=== PATIENT | male | born 1975 | race Caucasian/White ===

== ENCOUNTER 2018-06-30 21:28 | Emergency (ER) | payer SELFPAY ==
--- NOTE | 2018-06-30 21:57 | EDPHY ---
H & P Stated Complaint: Marceline Vomit X 3 Months Time Seen by Provider: 06/30/18 22:03 HPI/ROS: HPI CHIEF COMPLAINT: Multiple complaints. Nausea, vomiting. HISTORY OF PRESENT ILLNESS: 42-year-old male presents emergency room intoxicated with alcohol. He arrives in police custody is here for medical clearance for usp. The patient has multiple complaints including nausea vomiting and hematuria. Patient reports that he was diagnosed with "a gastrointestinal cancer" years ago not currently undergoing any current treatment. Does not take any daily medications. However he reports to me that every morning he wakes up in vomits. He typically vomits what he describes a great discoloration sometimes bile yellow, sometimes bloody. Also reports to me that he has brown stool sometimes sees blood in it. Additionally reports to me that at times he urinates blood. Denies any chest pain or shortness of breath. His main complaint nausea vomiting every morning. Discoloration of his urine Discoloration of his vomit Discoloration of his stool. Denies black tarry stool. Denies recent fever Denies recent illness Past Medical History: "A gastrointestinal cancer" Past Surgical History: No recent surgery Social History: Alcohol this evening. Denies drugs or tobacco. Family History: Noncontributory ROS REVIEW OF SYSTEMS: 10 Systems were reviewed and negative with the exception of the elements mentioned in the history of present illness. Exam Constitutional smells of alcohol, intoxicated, triage nursing summary reviewed , vital signs reviewed, awake/alert. Vital signs stable. Eyes normal conjunctivae and sclera, EOMI, PERRLA. HENT normal inspection, atraumatic, moist mucus membranes, no epistaxis, neck supple/ no meningismus, no raccoon eyes. Respiratory clear to auscultation bilaterally, normal breath sounds, no respiratory distress, no wheezing. Cardiovascular rate normal, regular rhythm, no murmur, no edema, distal pulses normal. Gastrointestinal soft, non-tender, no rebound, no guarding, normal bowel sounds, no distension, no pulsatile mass. Genitourinary no CVA tenderness. Musculoskeletal no midline vertebral tenderness, full range of motion, no calf swelling, no tenderness of extremities, no meningismus, good pulses, neurovascularly intact. Skin pink, warm, & dry, no rash, skin atraumatic. Neurologic intoxicated, smells of alcohol awake, alert and oriented x 3, AAOx3 , moves all 4 extremities equally, motor intact, sensory intact, CN II-XII intact, normal cerebellar, normal vision, normal speech. Psychiatric normal mood/affect. Heme/Lymph/Immune no lymphadenopathy. Differential Diagnosis: Includes but is not limited to in a particular order dehydration, GI bleed, hematuria UTI, alcohol intoxication, gastritis, alcohol and pancreatitis alcohol-induced gastritis Medical Decision Making: Plan for this patient IV establishment IV fluid bolus IV Pepcid for upset stomach, check blood work, CBC of history, UA. Re-evaluate Re-evaluation: Serum alcohol level 265. Urinalysis reveals no blood H&H are stable in fact they are hemoconcentrated. And not low. Here in emergency room 1:03 a.m. The patient is resting comfortably no acute distress. He has not any vomiting here and no bowel movement here. I think GI bleed is unlikely given his BUN is normal, H&H are stable and elevated and not low. He has not any vomiting here. He complained of blood in his urine but there is no evidence of this on his urinalysis. I will allow him he did medically cleared for usp his initial serum alcohol level 265. He is now much more sober clinically stable and answers my questions appropriately and safe for discharge to the usp. Return precautions discussed with him. Source: Patient - Personal History Current Tetanus/Diphtheria Vaccine: Yes Current Tetanus Diphtheria and Acellular Pertussis (TDAP): Yes - Medical/Surgical History Hx Asthma: No Hx Chronic Respiratory Disease: No Hx Diabetes: No Hx Cardiac Disease: No Hx Renal Disease: No Hx Cirrhosis: No Hx Alcoholism: Yes Hx HIV/AIDS: No Hx Splenectomy or Spleen Trauma: No Other PMH: GI Cancer. orthopedic surgeries - Social History Smoking Status: Current every day smoker Constitutional: Initial Vital Signs Temperature (C) 36.5 C 06/30/18 21:33 Heart Rate 78 06/30/18 21:33 Respiratory Rate 18 06/30/18 21:33 Blood Pressure 150/109 H 06/30/18 21:33 O2 Sat (%) 93 06/30/18 21:33 O2 Delivery Mode Room Air Allergies/Adverse Reactions: Opioids - Morphine Analogues Allergy (Verified 06/30/18 21:32) Penicillins Allergy (Verified 06/30/18 21:32) Home Medications: Medication Instructions Recorded NK [No Known Home Meds] 06/30/18 Medical Decision Making - Data Points Laboratory Results: Laboratory Results 06/30/18 22:08 06/30/18 22:08 06/30/18 06/30/18 06/30/18 22:50 22:08 22:08 WBC 10.11 10^3/uL H 10^3/uL (3.80-9.50) RBC 5.82 10^6/uL 10^6/uL (4.40-6.38) Hgb 18.1 g/dL H g/dL (13.7-17.5) Hct 51.9 % H % (40.0-51.0) MCV 89.2 fL fL (81.5-99.8) MCH 31.1 pg pg (27.9-34.1) MCHC 34.9 g/dL g/dL (32.4-36.7) RDW 12.5 % % (11.5-15.2) Plt Count 238 10^3/uL 10^3/uL (150-400) MPV 9.5 fL fL (8.7-11.7) Neut % (Auto) 75.2 % H % (39.3-74.2) Lymph % (Auto) 15.4 % % (15.0-45.0) [place] % (Auto) 8.1 % % (4.5-13.0) Eos % (Auto) 0.5 % L % (0.6-7.6) Baso % (Auto) 0.5 % % (0.3-1.7) Nucleat RBC Rel Count 0.0 % % (0.0-0.2) Absolute Neuts (auto) 7.60 10^3/uL H 10^3/uL (1.70-6.50) Absolute Lymphs (auto) 1.56 10^3/uL 10^3/uL (1.00-3.00) Absolute Monos (auto) 0.82 10^3/uL H 10^3/uL (0.30-0.80) Absolute Eos (auto) 0.05 10^3/uL 10^3/uL (0.03-0.40) Absolute Basos (auto) 0.05 10^3/uL 10^3/uL (0.02-0.10) Absolute Nucleated RBC 0.00 10^3/uL 10^3/uL (0-0.01) Immature Gran % 0.3 % % (0.0-1.1) Immature Gran # 0.03 10^3/uL 10^3/uL (0.00-0.10) Sodium 138 mEq/L mEq/L (135-145) Potassium 4.5 mEq/L mEq/L (3.5-5.2) Chloride 105 mEq/L mEq/L (97-110) Carbon Dioxide 22 mEq/l mEq/l (22-31) Anion Gap 11 mEq/L mEq/L (6-14) BUN 8 mg/dL mg/dL (7-23) Creatinine 0.8 mg/dL mg/dL (0.7-1.3) Estimated GFR > 60 Glucose 113 mg/dL H mg/dL (70-100) Calcium 9.4 mg/dL mg/dL (8.5-10.4) Total Bilirubin 0.5 mg/dL mg/dL (0.1-1.4) Conjugated Bilirubin 0.4 mg/dL mg/dL (0.0-0.5) Unconjugated Bilirubin 0.1 mg/dL mg/dL (0.0-1.1) AST 171 IU/L H IU/L (17-59) ALT 194 IU/L H IU/L (21-72) Alkaline Phosphatase 69 IU/L IU/L (38-126) Total Protein 8.4 g/dL H g/dL (6.3-8.2) Albumin 4.7 g/dL g/dL (3.5-5.0) Lipase 688 IU/L H IU/L (23-300) Urine Color COLORLESS Urine Appearance CLEAR Urine pH 5.0 (5.0-7.5) Ur Specific [place] 1.001 L (1.002-1.030) Urine Protein NEGATIVE (NEGATIVE) Urine Ketones NEGATIVE (NEGATIVE) Urine Blood NEGATIVE (NEGATIVE) Urine Nitrate NEGATIVE (NEGATIVE) Urine Bilirubin NEGATIVE (NEGATIVE) Urine Urobilinogen NEGATIVE EU EU (0.2-1.0) Ur Leukocyte Esterase NEGATIVE (NEGATIVE) Urine Glucose NEGATIVE (NEGATIVE) Urine Opiates Screen NEGATIVE (NEGATIVE) Urine Barbiturates NEGATIVE (NEGATIVE) Ur Phencyclidine Scrn NEGATIVE (NEGATIVE) Ur Amphetamine Screen NEGATIVE (NEGATIVE) U Benzodiazepines Scrn NEGATIVE (NEGATIVE) Urine Cocaine Screen NEGATIVE (NEGATIVE) U Marijuana (THC) Screen NON-NEGATIVE H (NEGATIVE) Ethyl Alcohol 265 mg/dL H mg/dL (0-10) Medications Given: Discontinued Medications Sodium Chloride (Ns) 1,000 mls @ 0 mls/hr IV EDNOW ONE; Wide Open PRN Reason: Protocol Stop: 06/30/18 22:03 Last Admin: 06/30/18 22:14 Dose: 1,000 mls Famotidine/Sodium Chloride (Pepcid 20 Mg (Premix)) 50 mls @ 200 mls/hr IV EDNOW ONE Stop: 06/30/18 22:16 Last Admin: 06/30/18 22:13 Dose: 50 mls Departure - Departure Disposition: Home, Routine, Self-Care Clinical Impression: Alcohol intoxication Condition: Good Instructions: Alcohol Intoxication (ED), Abuse of Alcohol (ED) Referrals: NONE *PRIMARY CARE P,. [Primary Care Provider] - As per Instructions
[2018-06-30] MEDS ORDERED: NS 1,000 ML IV ONE (22:02)
[2018-06-30] MEDS ORDERED: FAMOTIDINE 20 MG/NACL 50 ML IV ONE (22:02)
[2018-06-30 22:20] LABS: PLATELET COUNT 238 10^3/uL (150-400)
[2018-07-01 01:13] VITALS: BP 143/65
== END 2018-07-01 01:11 | disposition home or self-care (01) ==
DX: F10.920 Alcohol use, unspecified with intoxication, uncomplicated (principal); F17.200 Nicotine dependence, unspecified, uncomplicated; Z85.038 Personal history of other malignant neoplasm of large intestine
CPT/HCPCS: 80305; 96365; G0480